=== PATIENT | male | born 1945 | race Caucasian/White ===

== ENCOUNTER 2017-01-09 12:56 | Emergency (ER) | payer MEDICARE ==
[~2017-01-09] VITALS: Ht 167.6 cm; Wt 81.6 kg
[~2017-01-09 12:56] MED LIST: CENTRUM SILVER1 EACH PO; LORTAB 5/3251 TAB PO; ZOFRAN ODT4 MG PO
--- NOTE | 2017-01-09 14:18 | Emergency Room Report ---
History of Present Illness Time Seen by 1312 Presenting Problem in Triage Pt arrived:Walked Presenting Problem:PT C/O LOWER BACK PAIN THAT WAS AGGRAVATED BY WEEDEATING. PT DENIES ANY CP, SOA, WEAKNESS. PT DENIES ANY PREVIOUS BACK PROBLEMS. PT ADVIESE THE PAIN BEGAN 4 DAYS AGO AND HASN'T GOTTEN ANY BETTER Onset of symptoms date/time:/ or onset unknown for:MEDICAL HX UNKNOWN Treatment Prior to Arrival: 5MG LORTAB AT 0930 [facility] Provided by:SELF Sepsis Risk Assessment: Temp: 98.4 B/P: 118/74 MAP: 88 Pulse: 73 Resp: 18 Recent fever? N Clinical Suspician of Infection? N Mental Status: 1 - Regular (Normal Baseline) Sepsis Risk:Low Sepsis Risk Have you (or family members/close friends) recently traveled outside the [place]? N If Yes, where/when: Have you had exposure to infectious disease within the past month? N TB? Other? Specify: Comment The patient plans of low back pain for the past 3-4 days. He locates the pain as around the lumbosacral midline. No radiation. No numbness or weakness of the legs. No loss of bowel or bladder control. He finds it hard to get up and walk because his back gets painful and stiff. He has not taken any [id number] medication or prescription medication for this. No history of prior back problems. He says the stiffness and soreness started after he did some weed eating 3-4 days ago, he also did some weed eating last night and feels worse today. ALLERGIES Coded Allergies: No Known Allergies (03/07/16) Home Medications Active Scripts HYDROCODONE/ACETAMINOPHEN (Lortab 5-325 MG Tablet) 1 TAB PO Q6HP PRN pain #20 TAB Prov: 03/07/16 Ondansetron (Zofran 4MG Odt) 4 MG PO Q6HP PRN NAUSEA AND VOMITING #10 ODT Prov: 03/07/16 Reported Medications Multivit-Min/FA/Lycopene/Lut (Centrum Silver Tablet) 1 EACH PO DAILY History Medical History General CAD? No Angina: No ID: No Hypertension? No Hyperlipidemia? No CHF? No DVT? No PE? No COPD? No Asthma? No Anemia? No GERD? No Gastric ulcers? No GI Bleed? No Hernia? No Thyroid Problems? No Hypothyroidism? No CVA? No Seizures? No Diabetes? No Renal Insuffiency? No End Stage Renal Disease? No UTI? No Stones? No BPH? No GB Disease: No Nephritic Syndrome? No Asplenia? No Hepatitis? No Sickle Cell Disease? No Arthritis? No Migraines? No Cataracts? No Glaucoma? No MRSA? No HIV? No TB? No Anxiety? No Depression? No Cancer? No More? No Immunization Hx DT/Tetanus Unknown Surgical Hx Previous Surgery?Y CIRCUMCISION Social History Smoking Hx Smoker: Former Smoker Tobacco: Yes Type Cigarettes Alcohol Alcohol: No Review of Systems All Other Systems Reviewed and Negative Constitutional denies fever, denies weakness Gastrointestinal denies abdominal pain Musculoskeletal back pain Psychiatric/Neurological denies numbness, denies weakness Physical Exam Vital Signs Vital Signs Date Time Temp Pulse Resp B/P Pulse O2 O2 Flow FiO2 Ox Delivery Rate 01/09 1519 62 16 142/77 97 01/09 1518 16 01/09 1311 95 01/09 1309 98.4 73 18 118/74 96 General Appearance normal appearance, WD/WN Eye Exam - bilateral eye normal exam, bilateral eye PERRL, bilateral eye EOMI Ear, Nose, Throat hearing grossly normal, normal ENT inspection Neck normal inspection, non-tender, supple, full range of motion Respiratory Status Yes: trachea midline, chest symmetrical, non tender chest. No: respiratory distress. Lung Sounds bilateral: normal breath sounds, lungs clear. Cardiovascular normal exam, regular rate/rhythm, no peripheral edema, no gallop, no JVD, no murmur, no rub, normal peripheral pulses Peripheral Pulses Pulses normal Yes Gastrointestinal normal bowel sounds, normal exam, non tender, soft, no organomegaly, no pulsatile mass Back normal inspection, no CVA tenderness, no vertebral tenderness Extremities non-tender, normal range of motion, normal inspection Neurologic alert, normal exam, no motor/sensory deficits, oriented x 3 Reflexes Comment LEFT patella 1+, RIGHT patella 0+ LEFT and RIGHT ankle jerk 0+ Mental status normal mood/affect Skin intact, normal color, warm/dry Medical Decision Making LABS/Meds/Orders Pt receiving controlled substance in ED? No Results/Orders Laboratory Tests 01/09/17 1309: Sodium Cancelled, Potassium Cancelled, Chloride Cancelled, Carbon Dioxide Cancelled, BUN Cancelled, Creatinine Cancelled, Estimated Creat Clear Cancelled, Estimated GFR (MDRD) Cancelled, Glucose Cancelled, Calcium Cancelled, Total Bilirubin Cancelled, AST Cancelled, ALT Cancelled, Alkaline Phosphatase Cancelled, Total Protein Cancelled, Albumin Cancelled, Globulin Cancelled, Albumin/Globulin Ratio Cancelled, WBC Cancelled, RBC Cancelled, Hgb Cancelled, Hct Cancelled, MCV Cancelled, RDW Cancelled, Plt Count Cancelled, Gran % Cancelled, Gran # Cancelled, Lymphocytes % Cancelled, Eosinophils % Cancelled, Basophils % Cancelled, Lymphocytes # Cancelled, Eosinophils # Cancelled, Basophils # Cancelled, PUBS MCHC Cancelled, MCH Cancelled Current Medication Orders Sig/Eugenio Start time Last Medication Dose Route Stop Time Status Admin Ketorolac 0 .STK-MED ONE 01/09 1515 DC Tromethamine .ROUTE Ketorolac 30 MG ONCE ONE 01/09 1445 DC 01/09 Tromethamine IM 01/09 1446 1518 Sodium Chloride 10 ML PRN PRN 01/09 1315 DC IV 01/10 1309 Orders Procedure Date/time Status LUMBAR SPINE 5 VIEWS 01/09 1440 Active XRAY/CT/US XRAY/CT/US XRAY L-spine Comment X-ray interpreted by Juanito Cedeño M.D.: Degenerative changes with spurs, multiple levels, no fracture Progress - 4:00 PM: The patient says his back "feels pretty good right now". He is sitting upright on the side of the bed in no distress. I estimate there is LOW risk for ABDOMINAL AORTIC ANEURYSM, ACUTE AORTIC DISSECTION, CAUDA EQUINA SYNDROME, EPIDURAL MASS LESION, OR CORD COMPRESSION, thus I consider the discharge disposition reasonable. 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 You are also being given a referral to Dr. Jovel, orthopedic surgeon. Please call a physician on this list to arrange a follow-up appointment as soon as possible. Additional instructions for BACK PAIN: See your physician as soon as possible for further evaluation. Return immediately if back pain becomes intolerable, or if fever, numbness or weakness of your legs, loss of control of your bowels or bladder. Prescriptions Current Visit Scripts Naproxen (Naprosyn 500MG Tab) 500 MG PO BID #14 TAB ED Critical Care Critical Care No at 1614
[2017-01-09] MEDS ORDERED: NAPROSYN500 M1 PO (16:11)
[2017-01-09 16:22] VITALS: BP 143/75
--- NOTE | 2017-01-09 17:01 | RADIOLOGY REPORT PS360 ---
EXAM: LUMBAR SPINE 5 VIEWS HISTORY: Back pain pain ORDERING PHYSICIAN: Juanito Cedeño MD PATIENT AGE: 71 years COMPARISON: None FINDINGS: Normal alignment. There is degenerative disc disease in the lower thoracic spine and mild degenerative disc disease at L4-5 and L5-S1. Anterior syndesmophytes are present involving the lumbar and thoracic spine. Mild facet arthritic changes are present at L5-S1. No acute fracture or dislocation. 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
--- OUTSIDE RECORDS SUMMARY | 2017-01-13 19:55 | External Medical Summary Rpt ---
Demographics Preferred Language Faroese Marital Status Unknown Pentecostal Affiliation Unknown Race Unknown Ethnic Group Unknown Author Author , Organization [employer] Address Unknown Phone Unavailable Purpose Continuity of Care Document - through 2016 Immunization No patient found.
--- OUTSIDE RECORDS SUMMARY | 2017-01-13 19:55 | External Medical Summary Rpt ---
Author Author [facility] Batista, SAMARA Batista Organization [employer] Address Unknown Phone Unavailable
--- OUTSIDE RECORDS SUMMARY | 2017-01-13 19:55 | External Medical Summary Rpt ---
Author Author [employer] Organization [employer] Address Unknown Phone Unavailable Purpose Continuity of Care Document - through 2016
--- OUTSIDE RECORDS SUMMARY | 2017-01-13 19:55 | External Medical Summary Rpt ---
Author Author , Organization [employer] Address Unknown Phone Unavailable Purpose Continuity of Care Document - through 2016 Problems Code Diagnosis DOS Provider Status M47.816 SPONDYLOSIS W/O MYELOPATHY OR RADICULOPAT HY, LUMBAR REGION M54.5 LOW BACK PAIN
--- OUTSIDE RECORDS SUMMARY | 2017-01-13 19:55 | External Medical Summary Rpt ---
Demographics Preferred Language Khmer Marital Status Unknown Caodaism Affiliation Unknown Race Unknown Ethnic Group Unknown Author Author , Organization [employer] Address Unknown Phone Unavailable Purpose Continuity of Care Document - through 2016 Immunization No patient found.
--- OUTSIDE RECORDS SUMMARY | 2017-01-13 20:07 | External Medical Summary Rpt ---
Demographics Preferred Language Belarusian Marital Status Unknown Oriental Orthodox Affiliation Unknown Race Unknown Ethnic Group Unknown Author Author , Organization [employer] Address Unknown Phone Unavailable Purpose Continuity of Care Document - through 2016 Immunization No patient found.
--- OUTSIDE RECORDS SUMMARY | 2017-01-13 20:07 | External Medical Summary Rpt ---
Demographics Preferred Language Kiswahili Marital Status Unknown Presybeterian Affiliation Unknown Race Unknown Ethnic Group Unknown Author Author , Organization [employer] Address Unknown Phone Unavailable Purpose Continuity of Care Document - through 2016 Immunization No patient found.
== END 2017-01-09 16:22 | disposition home or self-care (01) ==
LOC: ER 12:56
DX: M54.5 Low back pain (principal); M47.816 Spondylosis without myelopathy or radiculopathy, lumbar region